=== PATIENT | female | born 1975 | race Caucasian/White ===

== ENCOUNTER 2019-05-31 11:37 | Inpatient (IN) | payer BC ==
[2019-05-31] VITALS (11 sets, daily range): BP systolic 111–129; BP diastolic 62–82; PULSE 72–102; TEMP 97.6–99.4
[~2019-05-31] VITALS: Ht 172.7 cm; Wt 74.1 kg
--- NOTE | 2019-05-31 12:10 | NUR ---
PATIENT ADMITED INTO ROOM 321-1 FROM ORTHO OFFICE FOR I&D OF RLE. NOTED AREA BELOW RLE THAT IS RED, SWOLLEN AND TENDER TO TOUCH. PATIENT REPORTS ORTHO ASPIRATED AND SENT LABS IN OFFICE. NOTIFIED OF ARRIVAL, SEE ORDERS. CONSENT ON CHART. 20 GAUGE IV STARTED ON FIRST ATTEMPT IN LEFT HAND. IV FLUIDS INFUSING VIA PUMP PER ORDERS. HEAD TO TOE ASSESSMENT WNL. MOTHER AT BEDSIDE. ORIENTED TO ROOM. PATIENT INDEPENDENT. CALL LIGHT IN REACH.
[2019-05-31] MEDS ORDERED: INDERAL LA 60MG60 MG PO (12:28)
[2019-05-31] MEDS ORDERED: ESTRACE 1MG1 MG/TAB PO (12:28)
[2019-05-31] MEDS ORDERED: ULTRAM 50MG TAB50 MG PO (12:29)
[2019-05-31] MEDS ORDERED: ROXICODONE 55 MG/TAB PO (12:29)
[2019-05-31] MEDS ORDERED: PERCOCET 325 MG1 TA2 PO (12:30)
[2019-05-31] MEDS ORDERED: IBU600 MG PO (12:30)
[2019-05-31] MEDS ORDERED: CLEOCIN HCL300 MG PO (12:31)
--- NOTE | 2019-05-31 14:58 | NUR ---
PATIENT GOING DOWN TO OR VIA BED. MOTHER AT BEDSIDE. CONSENT ON CHART.
--- NOTE | 2019-05-31 17:45 | NUR ---
PATIENT BACK IN ROOM POST OP. RLE DRESSING IS CD&I WITH ACEWRAP AND ICE PACK. NO C/O PAIN. VSS.
--- NOTE | 2019-05-31 18:51 | NUR ---
This nursing informatics clinical analyst accompanied patient to surgery. Returned from recovery around 1740. Bed was placed on lowest position and call light within reach. Family present at the bed side. Patient took a few steps to bed side commode, tolerated transfer
--- NOTE | 2019-05-31 20:00 | NUR ---
PATIENT TOLERATED REGULAR DIET WITHOUT PROBLEM. HAS BEEN ABLE TO USE HER CRUTCHES TO GET TO THE BATHROOM.
--- NOTE | 2019-05-31 20:42 | NUR ---
MEDICATED WITH OXYCODONE 10MG PO FOR PAIN / TO RIGHT LEG. DRSG TO RT LOWER LEG D/I. IV TO LEFT HAND WITHOUT REDNESS OR SWELLING.
--- NOTE | 2019-06-01 01:30 | NUR ---
PATIENT MEDICATED WITH OXYCODONE 10MG PO FOR RIGHT LOWER LEG PAIN.
[2019-06-01 03:57] VITALS: BP 93/51; PULSE 84; TEMP 98.1
--- NOTE | 2019-06-01 05:30 | NUR ---
PATIENT REPORTS PAIN IS CONTROLLED AT THIS TIME. IVF CONTINUES TO LEFT HAND WITHOUT REDNESS OR SWELLING.
--- NOTE | 2019-06-01 06:30 | NUR ---
IVF CAPPED AT THIS TIME.
--- NOTE | 2019-06-01 08:00 | NUR ---
UPON ENTRY TO THE ROOM THIS MORNING THE PATIENT IS RESTING IN BED. PATIENT IS A&OX4. VSS. BOWEL SOUNDS ACTIVE ALL FOUR QUADRANTS. PATIENT TOLERATING DIET WITHOUT ANY COMPLAINTS OF N/V. POSITIVE PEDAL PULSES EQUAL BILATERALLY. CAP REDILL <3 SECONDS. CMS INTACT. RIGHT KNEE INCISION DRESSED WITH GAUZE AND JHONY WRAP AND IS CD&I. RIGHT KNEE DRESSING REMOVED. SUTURES INTACT. EDGES WELL APPROXIMATED, REDNESS OVER KNEE NOTED. LEFT HAND TO INT. CALL LIGHT WITHIN REACH. PATIENT DENIES ANY OTHER NEEDS AT THIS TIME.
[2019-06-01 09:09] VITALS: BP 105/61; PULSE 84; TEMP 97.8
--- NOTE | 2019-06-01 11:21 | NUR ---
Social Workers met with the patient to discuss discharge planning. Patient lives in [place] with her , Raul (ph# [phone]). Patient states her Primary Care Provider is Dr. Mignon Rodriguez and she obtains any needed prescriptions from the [facility] in [place]. The patient states she has no issues obtaining her medications at this time. The patient reports she has crutches at home, but no other DME. The patient states she is independent with ADL's and has no concerns about returning home. The patient states her will provide transportation upon discharge. The patient does not have Advance Directives on file and is not interested in completing them at this time. SW will continue to follow.
[2019-06-01 12:38] VITALS: BP 111/67; PULSE 76; TEMP 97.6
--- NOTE | 2019-06-01 14:55 | NUR ---
DR. CORADO CALLED AND NOTIFIED OF ID CONSULT FOR OUTPATIENT ANTIBIOTIC THERAPY.
[2019-06-01 16:24] VITALS: BP 141/81; PULSE 91; TEMP 97.5
[2019-06-01 18:33] LABS: BASO % 0.2 % (0.0-2.0); EOS # 0.1 (0.0-0.7); EOS % 0.4 % (0-4.0); GRAN # 9.9 (1.4-6.5); GRAN % 72.5 % (42.2-75.2); HEMOGLOBIN 10.7 g/dl (12.5-16.0); LYMPH # 2.8 (1.2-3.4); LYMPH % 20.2 % (20.0-51.0); MEAN CELL VOLUME 89 fl (80.0-100.0); MEAN CORPUSCULAR HEMOGLOBIN 28 pg (27.0-31.0); MEAN CORPUSCULAR HGB CONC 31 g/dl (33.0-37.0); MONO # 0.8 (0.1-0.6); MONO % 5.7 % (1.7-9.3); PLATELET COUNT 479 K/mm3 (130-400); RED BLOOD COUNT 3.83 M/mm3 (4.10-5.30); REDCELL DISTRIBUTION WIDTH-CV 13.8 % (11.5-14.5)
--- NOTE | 2019-06-01 18:33 | NUR ---
patient had multiple IV sticks. Dorita PRETTY successfully placed IV in patient, tolerated procedure. Comfortably sitting on bed with family members at the bedside.
[2019-06-01 18:40] LABS: ALANINE AMINOTRANSFERASE 20 U/L (9-52); ALBUMIN 3.8 gm/dL (3.5-5.0); ALKALINE PHOSPHATASE 89 U/L (50-136); ANION GAP 7 mmol/L (7-16); AST,SGOT 30 U/L (15-37); BILIRUBIN,TOTAL < 0.1 mg/dL (0.0-1.0); BLOOD UREA NITROGEN 14 mg/dL (7-17); CALCIUM 8.6 mg/dL (8.4-10.2); CARBON DIOXIDE 28 mmol/L (22-30); CHLORIDE 106 mmol/L (98-107); CREATININE, serum 0.78 (0.52-1.25); GLUCOSE 98 mg/dL (74-106); SODIUM 141 mmol/L (137-145); TOTAL PROTEIN 7.6 gm/dL (6.4-8.2)
[2019-06-01 18:49] LABS: HEMATOCRIT 34.1 % (37.0-47.0)
--- NOTE | 2019-06-01 18:50 | NUR ---
Vancomycin Initial Dosing Pharmacy Note Ordering provider: Douglas Lindquist MD Indication/duration: Bone/joint infection, ~14 days Relevant comorbidities: s/p high tibial osteotomy 3 mo ago, I&D on 05/31/19 LABS: SCr 0.78, CrCl~82, GFR 80 Recommendation: Will continue Vancomycin 1 gm IV q12h. Pharmacy will continue to monitor and order a Vancomycin trough on 06/03/19. Maintenance dose: 1 gram every 12 hours Trough goal: 15-20 ug/mL
--- NOTE | 2019-06-01 19:17 | NUR ---
REPORT GIVEN TO MARIA DE JESUS HOLLINGSWORTH.
[2019-06-01 19:23] VITALS: BP 131/80; PULSE 78; TEMP 97.6
--- NOTE | 2019-06-01 21:20 | NUR ---
Report received from MARIA DE JESUS Esquivel. Patient resting in bed. Assessment complete. Family in room. Pulses strong. Lungs CTA. Patient denies pain at this time. IV INT. Patient requests PRN melatonin. Bowels active x4. Denies any further needs at this time. Call light within reach.
[2019-06-02] VITALS (7 sets, daily range): BP systolic 98–129; BP diastolic 62–79; PULSE 67–78; TEMP 97.4–98.2
--- NOTE | 2019-06-02 03:29 | NUR ---
Patient sleeping in bed. Has not stated any needs since going to sleep. SCD's applied. Call light within reach.
--- NOTE | 2019-06-02 05:11 | NUR ---
When attempted to give toradol, discovered that IV site was lost. MARIA DE JESUS Link started new IV in left hand. Patient tolerated well.
--- NOTE | 2019-06-02 06:01 | NUR ---
Patient had uneventful night. Resting in bed. New IV site started in left hand. Denied pain throughout night. IV antibiotics running. Call light within reach.
--- NOTE | 2019-06-02 07:08 | NUR ---
Report given to MARIA DE JESUS Esquivel
--- NOTE | 2019-06-02 08:00 | NUR ---
UPON ENTRY TO THE ROOM THIS MORNING THE PATIENT IS SITTING UP IN BED. PATIENT IS A&OX4. VSS. BOWEL SOUNDS ACTIVE ALL FOUR QUADRANTS. PATIENT TOLERATING DIET WITHOUT ANY COMPLAINTS OF N/V. POSITIVE PEDAL PULSES EQUAL BILATERALLY. CAP REFILL <3 SECONDS. CMS INTACT. RIGHT KNEE INCISION DRESSED WITH TWO AQUACEL DRESSINGS WITH MODERATE AMOUNT OF SHADING PRESENT ON THE AQUACEL. LEFT HAND TO INT. CALL LIGHT WITHIN REACH. PATIENT DENIES ANY OTHER NEEDS AT THIS TIME.
--- NOTE | 2019-06-02 12:26 | NUR ---
Management Intern stopped by and offered prayer and support with patient.
--- NOTE | 2019-06-02 19:07 | NUR ---
REPORT GIVEN TO MARIA DE JESUS KLEIN.
--- NOTE | 2019-06-02 19:45 | NUR ---
Assessment completed. Denies pain. Aquacel dressing to right knee with drainage noted to dressing. Dressing change performed at this time. Drainage is dark red in color. Edges of incision well approximated, no redness or edema noted. Sutures intact. New Aquacell applied to site. Patient tolerates the procedure without issues. Requests Melatonin for sleep. Administered as ordered. Patient denies further needs at this time.
--- NOTE | 2019-06-02 22:11 | NUR ---
Lying in bed. Woke up and noted pain in bilateral biceps. Movement normal in both arms, strengths equal. Discussed with the patient that her biceps may be sore from using her crutches. Administered pain medication as prescribed. Patient denies further needs at this time.
--- NOTE | 2019-06-02 23:10 | NUR ---
Upon completion of administering scheduled Toradol, patient screams out that her IV site is burning her and begins to cry. Explained that if her IV is causing her that much pain we need to discontinue the IV and restart a IV in another site. Patient agrees. #22 gauge placed in right hand times one stick by this nurse. Blood flashback received, flushes without difficulty. Site reinforced with tegaderm and tape. IV in left hand discontinued with catheter intact. 2x2 applied to site and reinforced with tape. Patient continues to have pain in bilateral biceps. Explained that the Toradol should help with the pain and we will reassess to see if the Toradol helped. Patient agrees and denies further needs at this time.
--- NOTE | 2019-06-02 23:39 | NUR ---
Patient explains that her pain is getting a little better. Rating it a 6/10. Patient agrees to allow some more time for medication to work. Denies further needs.
--- NOTE | 2019-06-03 03:05 | NUR ---
Lying in bed. Explains that she has a ache in bilateral biceps, better than it was previously. Offered pain medication and patient declines at this time. Explained that if she changes her mind to let me know. Offered warmed blankets to apply to both arms and the patient declines. Patient denies further needs at this time.
[2019-06-03 04:00] VITALS: BP 116/70; PULSE 68; TEMP 97.9
--- NOTE | 2019-06-03 04:37 | NUR ---
Rates pain 5/10 in right knee. Small amount of drainage noted on dressing. Scheduled Toradol administered. Patient wants to see if Toradol helps with pain and if it does not alleviate pain in 45 minutes will call to get more pain medication. Patient denies further needs at this time.
--- NOTE | 2019-06-03 06:42 | NUR ---
Report given to MARIA DE JESUS Esquivel
[2019-06-03 07:31] VITALS: BP 121/73; PULSE 66; TEMP 97.5
--- NOTE | 2019-06-03 08:00 | NUR ---
SEE MORNING ASSESSMENT.
--- NOTE | 2019-06-03 08:41 | NUR ---
Vancomycin Follow-up Pharmacy Note Current regimen: Vancomycin 1 gm IV q12h Vancomycin trough: 10.22 Adjustments: Will increase Vancomycin to 1.5 gm IV q12h. Pharmacy will continue to montior and order a Vancomycin trough on 06/05/19.
[2019-06-03 09:15] LABS: CREATININE, serum 0.69 (0.52-1.25)
[2019-06-03 11:27] VITALS: BP 108/59; PULSE 82; TEMP 97.3
[2019-06-03 15:45] VITALS: BP 110/64; PULSE 72; TEMP 97.7
--- NOTE | 2019-06-03 19:12 | NUR ---
REPORT GIVEN TO MARIA DE JESUS POTTER.
--- NOTE | 2019-06-03 19:12 | NUR ---
REPORT GIVEN TO MARIA DE JESUS POTTER.
[2019-06-03 19:37] VITALS: BP 116/70; PULSE 74; TEMP 97.9
--- NOTE | 2019-06-03 20:01 | NUR ---
Sitting up in bed. Rates pain in right knee 10/29, denies need for pain medication at this time. Aquacel dressing to right knee with drainage noted on dressing. Melatonin administered as prescribed per patient request. Patient denies further needs at this time.
--- NOTE | 2019-06-03 22:43 | NUR ---
Rating pain in bilateral biceps 5/10, describes as a burning pain. Patient says that she has not been using her crutches today and only used them once yesterday. Pain medication administered at this time as ordered per patient request. Offered warm blankets to apply to upper arms and the patient declines. Discussed Dr. Angel aleman with the patient. Patient verbalizes understanding and denies further needs at this time.
[2019-06-04 00:06] VITALS: BP 118/68; PULSE 73; TEMP 98.2
--- NOTE | 2019-06-04 00:08 | NUR ---
Lying in bed with eyes closed. Eyes open when name called out. Rating pain in bilateral biceps 5/10, does not feel that the Ultram helped to decrease the pain. Scheduled Toradol given at this time. Patient instructed that we will reassess pain and if the Toradol has not helped we can get a stronger medication. Patient verbalizes understanding and denies further needs.
--- NOTE | 2019-06-04 00:23 | NUR ---
Lying in bed on left side. Eyes are closed but open when name called out. Patient explains pain is better, 10/29. Explain that if the pain starts to come back to let us know and we will see what we can provide to alleviate the pain. Patient verbalizes understanding and denies further needs.
--- NOTE | 2019-06-04 03:05 | NUR ---
Attempt to flush INT in right hand, unable to flush. Patient due for IV Vanc at this time. Attempt made times two by this nurse in right wrist and left AC without success. Gogo RN, in and starts a 22 gauge in left inner forearm. Patient tolerates procedure with little difficulty. Site flushes without difficulty. Reinforced site with tegaderm and tape. Connected scheduled Vanc to infuse as ordered. Discontinued IV in right hand, catheter intact, applied 2x2 to site and reinforced with tape. Patient denies further needs at this time.
--- NOTE | 2019-06-04 04:05 | NUR ---
Lying supine in bed. Eyes open when name called out. Rates pain 3/10 at this time. IV Vancomycin infusing without difficulty. Patient denies further needs at this time.
[2019-06-04 04:35] VITALS: BP 117/69; PULSE 64; TEMP 97.9
--- NOTE | 2019-06-04 05:10 | NUR ---
Rates pain 3/10 in right knee. Scheduled Toradol administered at this time. Patient explains that the Toradol seems to work well for her and questions if this is something that she can get to take at home. Explained that she would need to ask the provider if they would be able to provide an rx for home use when discharged. Patient says that the Ultram does not seem to help decrease pain for her. Encouraged the patient to tell provider this when they come to see her that way when she is discharged she will have medications that work appropriate when she gets home. Patient verbalizes understanding and denies further needs at this time.
[2019-06-04 08:27] VITALS: BP 115/72; PULSE 69; TEMP 98.1
--- NOTE | 2019-06-04 09:45 | NUR ---
AIVS AT BEDSIDE PLACING PICC LINE. ORTHO REQUESTING PATIENT GETS A DOSE OF THE DAPTAMYCIN BEFORE DISCHARGE DUE TO HER EXTENSIVE ALLERGIES WITH ANTIBIOTICS. MESSAGED. AWAITING ANTIBIOTIC CHANGE. PATIENT SHOULD DISCHARGE HOME WITH PICC LINE LATER TODAY.
[2019-06-04] MEDS ORDERED: CUBICIN 500MG500 MG IV (09:48)
--- NOTE | 2019-06-04 10:14 | NUR ---
The patient is to discharge home today, 06/04. The patient is needed outpatient IV antibiotics and will be going to [facility] for those services. AMANDA contacted MARIA DE JESUS [employer] case manager. She reports the patient does not need prior authorization. AMANDA informed the patient's nurse. There are no additional needs at this time.
--- NOTE | 2019-06-04 11:08 | NUR ---
Initial visit; Patient thanked Microstrategy Developer for looking in on her and offering God's blessings.
[2019-06-04 11:47] VITALS: BP 117/76; PULSE 70; TEMP 97.8
--- NOTE | 2019-06-04 15:20 | NUR ---
TALKED WITH 'S OFFICE. FAXED PATIENT INFO. OFFICE TO CALL PATIENT FOR APT
--- NOTE | 2019-06-04 15:25 | NUR ---
PATIENT DISCHARGE VIA WHEELCHAIR TO PERSONAL VEHICLE WITH MOTHER. CHANGED RLE DRESSING AND APPLIED 4X4'S, ABD & ACEWRAP. PATIENT DISCHARGING WITH RUE PICC INPLACE. PATIENT TO GO TO [place] FOR IV ABX. GAVE SCRIPTS AND ORTHO FOLLOW UP APT. PATIENT DISCHARED.
== END 2019-06-04 15:25 | disposition home or self-care (01) | DRG 903 ==
LOC: SDCO 11:37 → SURG 11:55 → SDCO 06-01 14:05 → SURG 06-01 14:05
PROVIDERS: Internal Medicine Infectious Disease; ADMIT Orthopaedic Surgery
PROC: 3E0102A Introduction of Anti-Infective Envelope into Subcutaneous Tissue, Open Approach (ICD-10-PCS; 2019-05-31)
PROC: 0JBN0ZZ Excision of Right Lower Leg Subcutaneous Tissue and Fascia, Open Approach (ICD-10-PCS; principal; 2019-05-31 16:00)
PROC: 02HV33Z Insertion of Infusion Device into Superior Vena Cava, Percutaneous Approach (ICD-10-PCS; 2019-06-04)
DX: M96.842 Postprocedural seroma of a musculoskeletal structure following a musculoskeletal system procedure (principal); G43.909 Migraine, unspecified, not intractable, without status migrainosus; Z88.2 Allergy status to sulfonamides; Z88.1 Allergy status to other antibiotic agents; Z88.8 Allergy status to other drugs, medicaments and biological substances; Z88.0 Allergy status to penicillin
CPT/HCPCS: OP; A9284; C1751; J0878; J1100; J1885; J2250; J2405; J2704; J2795; J3010; J3260; J3370; J7042; J7050; J7120